=== PATIENT | female | born 1990 | race Hispanic/Latino ===

== ENCOUNTER 2022-04-01 08:31 | Emergency (ER) | payer OTHER, SELFPAY ==
[2022-04-01] MEDS ORDERED: Ketorolac Tromethamine 30 MG/ML VIAL ONE (09:54)
[2022-04-01] MEDS ORDERED: Dexamethasone 4 mg/ml Vial ONE (09:54)
[2022-04-01] MEDS ORDERED: Cyclobenzaprine 10 MG TAB ONE (09:54)
== END 2022-04-01 10:16 | disposition home or self-care (01) ==
LOC: ERS 08:31
DX: S39.012A Strain of muscle, fascia and tendon of lower back, initial encounter (principal); X58.XXXA Exposure to other specified factors, initial encounter
CPT/HCPCS: 96372; 99283; J1100; J1885